=== PATIENT | female | born 1970 | race Caucasian/White ===

== ENCOUNTER 2018-10-21 05:45 | Inpatient (IN) ==
[2018-10-21] MEDS ORDERED: CELECOXIB 200 MG CAPSULE PO ONE ×2 (05:50→06:00)
[2018-10-21] MEDS ORDERED: ACETAMINOPHEN 500 MG TABLET PO ONE ×2 (05:51→06:00)
[2018-10-21] MEDS ORDERED: GABAPENTIN 300 MG CAPSULE PO ONE ×2 (05:51→06:00)
[2018-10-21] MEDS ORDERED: PANTOPRAZOLE 40 MG TABLET PO ONE ×2 (05:52→06:00)
[2018-10-21] MEDS ORDERED: Lactated Ringers 1,000 ML PRIMARY IV ONE (05:52)
[2018-10-21] MEDS ORDERED: LIDOCAINE W/ SODIUM BICARB 0.5 ML SYR ONE (05:52)
[2018-10-21] MEDS ORDERED: Lactated Ringers 1,000 ML PRIMARY IV SCH (06:00)
[2018-10-21] MEDS ORDERED: Nasal Sanitizer POPSWAB ampule 3 AMP (Nozin) PREOP DOSE ENOS SCH (06:00)
[2018-10-21] MEDS ORDERED: LIDOCAINE W/ SODIUM BICARB 0.5 ML SYR SUBD ONE (06:00)
[2018-10-21] MEDS ORDERED: Ketorolac Inj 30 MG, Morphine Inj (Ortho Cocktail) 4 MG, BUPivacaine Inj 0.25% PF 150 MG SPLASH ONE ×3 (06:00)
[2018-10-21] MEDS ORDERED: ceFAZolin Inj 2gm (Premix) 2 GM/50 ML BAG IV ONE ×2 (06:00→07:22)
[2018-10-21 06:15] LABS: BILIRUBIN,URINE NEGATIVE (NEG); CLARITY,URINE CLEAR (CLEAR); COLOR,URINE YELLOW (Y); GLUCOSE, URINE (UA) NEGATIVE (NEG); OCCULT BLOOD,URINE MODERATE (NEG); PH,URINE 5.5 (5.0-8.5); PROTEIN,URINE NEGATIVE (NEG); UROBILINOGEN,URINE 0.2 EU/dL (0.2)
[2018-10-21 06:18] LABS: SQUAMOUS EPITHELIAL CELL,UR FEW; URINE SAMPLE TYPE CLEAN CATCH URINE; WBC,URINE 0
[2018-10-21] MEDS ORDERED: Sodium Chloride 0.9% vial 40 ML ONE (06:49)
[2018-10-21] MEDS ORDERED: BACITRACIN 50,000 UNIT VIAL IRRIG ONE (06:49)
[2018-10-21] MEDS ORDERED: BUPivacaine Liposome/PF (Exparel) Inj 20ml vial INFIL ONE (06:49)
[2018-10-21] MEDS ORDERED: MIDAZOLAM 5 MG/1 ML ONE (06:56)
[2018-10-21] MEDS ORDERED: LIDOCAINE 2%/ EPI 1:200,000 - 20 ML VIAL ONE (06:56)
[2018-10-21] MEDS ORDERED: fentaNYL Inj 250 MCG/5 ML VIAL ONE (06:57)
[2018-10-21] MEDS ORDERED: BUPivacaine Inj 0.5% PF (5mg/ml) 30ml vial ONE (06:58)
[2018-10-21] MEDS ORDERED: PROPOFOL 10 MG/1 ML (200 MG/20 ML) VIAL IV ONE (07:35)
[2018-10-21] MEDS ORDERED: LIDOCAINE MPF 2% - 5 ML (20 MG/1 ML) ONE (07:36)
[2018-10-21] MEDS ORDERED: DEXAMETHASONE PF 10 MG/1 ML VIAL ONE (08:08)
[2018-10-21] MEDS ORDERED: ONDANSETRON 4 MG/2 ML VIAL ONE (08:08)
[2018-10-21] MEDS ORDERED: TRANEXAMIC ACID 1,000 MG / 10 ML VIAL ONE (08:11)
--- NOTE | 2018-10-21 08:40 | CRNA.PROCE ---
Nerve Block Documentation - - Type of Nerve Block Used: Right Adductor Canal Nerve Block Position for Nerve Block: Supine Moniters Used During Block: EKG, SPO2, NIBP Oxygen Supplemented: Yes Sedation Used - Enter Amount in Comment Field [ANES.SEDAT]: Midazolam (mg): Yes (2mg), Fentanyl (mcg): Yes (50mcg) Skin Prep Used: ChloroPrep Draped: No Technique: Ultrasound Nerve Block Needle Used: EchoBright 50 mm Local Anesthetic - Enter Amt in Comment Field [ANES.LOCNB]: 0.5 % Bupivacaine Plain (mL): Yes (20ml), 2 % Xylocaine with Epinephrine 1:200,000 (mL): Yes (20ml) Additives to Nerve Blocks: Dexamethasone (mg): Yes (8mg(2ml)) - - PreOp Block : Time In: 07:17 PreOp Block : Time Out: 07:34 Anesthesia Time - Other Weight: 108.817 kg Height: 5 ft 6 in Body Mass Index (BMI): 38.7
[2018-10-21 11:11] LABS: Hematocrit [HCT] 38.6 % (37.0-47.0); Hemoglobin [HGB] 12.7 g/dL (12.0-16.0)
--- NOTE | 2018-10-21 11:54 | CRNA.PROGR ---
Anesthesia Time - Procedure/Recovery Time Start Date: 10/21/18 End Date: 10/21/18 Anesthesia : Time In: 07:45 Anesthesia : Time Out: 10:53 Anesthesia : Total Time: 188 - Block Time Start Date: 10/21/18 End Date: 10/21/18 PreOp Block : Time In: 07:17 PreOp Block : Time Out: 07:34 PreOp Block : Total Time: 17 - Total Anesthesia Time Total Anesthesia Time (minutes): 205 - Other Weight: 108.817 kg Height: 5 ft 6 in Body Mass Index (BMI): 38.7 Physical Status: P2 Anesthesia Type: General Anesthesia : LMA
[2018-10-21] MEDS ORDERED: HYDROmorphone 2 MG/1 ML IVP PRN (11:55)
[2018-10-21] MEDS ORDERED: LIDOCAINE W/ SODIUM BICARB 0.5 ML SYR SUBD PRN (11:55)
--- NOTE | 2018-10-21 11:55 | CRNA.PROGR ---
Anesthesia Recovery Phase I - Post Anesthesia Evaluation Patient's Condition on Arrival in Phase I: Stable Pain Level: 1
--- NOTE | 2018-10-21 11:59 | DI ---
XR KNEE 1 OR 2 VWS 10/21/2018 10:55 AM HISTORY: [facility] ^right knee OA Comparison: None. Findings: AP and crosstable lateral views of the right knee show postsurgical changes consistent wit h total knee arthroplasty. There is no evidence of hardware fracture or loosening. There is gas in th e soft tissues surrounding the knee, an expected finding in the immediate postoperative timeframe. Th ere is a wound VAC over the anterior knee. Impression: Status post total knee arthroplasty without evidence of complication.
[2018-10-21] MEDS ORDERED: ONDANSETRON 4 MG/2 ML VIAL IVP PRN (12:28)
[2018-10-21] MEDS ORDERED: LIDOCAINE HCL 2 % 10 ML JELLY URO-JECT TOPICAL PRN (12:28)
--- NOTE | 2018-10-21 12:29 | ORTHO.OP ---
Surgery Date: 10/21/18 Preoperative Diagnosis: right knee oa Postoperative Diagnosis: same Procedure: right TKA Surgeon: Rodger Hannah MD Outside Sales Consultant: Nora Palmer PA-C Anesthesia Provider: Rashaun Dailey CRNA Anesthesia Type: General, Regional Estimated Blood Loss (mL): 250 Fluids: 1700 mL LR Pathology: none Findings: See Operative Note Indications: See Operative Note Complications: None
[2018-10-21] MEDS: oxyCODONE/APAP 7.5/325 Tab 1 TAB TAB PO PRN (12:36)
[2018-10-21] MEDS: CYCLOBENZAPRINE 10 MG TABLET PO PRN ×2 (12:36→20:48)
[2018-10-21] MEDS: Lactated Ringers 1,000 ML PRIMARY IV SCH ×2 (12:36→22:42)
[2018-10-21] MEDS: ceFAZolin Inj 2gm (Premix) 2 GM/50 ML BAG IV SCH (17:09)
--- NOTE | 2018-10-21 17:22 | CONSULT ---
Consult Note - Consult Reason for Consult: PostOp Consulation : Ortho Requesting Physician: Dr. Hannah for hypertension Primary Care Provider: Rodger Hannah - History of Present Illness History of Present Illness: This very nice 48-year-old female comes in admitted for elective right total knee replacement by Dr. Hannah hospitalist service was consulted for hypertension patient denies chest pain nausea vomiting patient was given Norvasc 10 mg blood pressure now under control at 120/80 from 140/112 Past Medical History Medical History: Hypertension degenerative joint disease, depression, anxiety Tobacco Use: Current Every Day Smoker In the Past 12 Months, Have Used or Abuse Any of the Following Substance: None Medication / Allergies Home Medications: Home Medications Medication Instructions Recorded Confirmed Type Divalproex Sodium [Depakote] 750 mg PO BID 09/25/18 10/21/18 History Lamotrigine [Lamictal] 200 mg PO DAILY 09/25/18 10/20/18 History Lisinopril [Zestril] 40 mg PO DAILY 09/25/18 10/20/18 History Venlafaxine HCl [Effexor Xr] 225 mg PO DAILY 09/25/18 10/21/18 History Alprazolam [Xanax] 0.5 mg PO PRN PRN 10/16/18 10/20/18 History Oxycodone HCl/Acetaminophen 1 - 2 ea PO Q4-6H PRN #70 tab 10/21/18 Rx [Percocet 7.5-325 Mg Tablet] Allergies/Adverse Reactions: Allergies Allergy/AdvReac Type Severity Reaction Status Date / Time hylan G-F 20 [From Synvisc] Allergy Swelling Verified 10/20/18 09:03 acetaminophen [From Vicodin] AdvReac Hallucinati Verified 10/20/18 09:03 ons codeine AdvReac Other : Verified 10/20/18 09:03 [From Tylenol-Codeine #3] See Comment hydrocodone [From Vicodin] AdvReac Hallucinati Verified 10/20/18 09:03 ons Exam - Vitals Vital Signs: Vital Signs Temperature 98.4 F Temperature Source Axillary Pulse Rate [Pulse Oximeter] 96 Pulse Rate 101 Respiratory Rate 16 Blood Pressure [Right Arm] 120/69 Blood Pressure [Left Arm] 138/82 Blood Pressure 144/95 Pulse Ox 98 Oxygen Flow Rate 1 Oxygen Delivery Method Nasal Cannula Height 5 ft 6 in Weight 239 lb 14.4 oz - General General Appearance: No Acute Distress, Cooperative - Head Head Exam: Normal Inspection, Normocephalic, Atraumatic - Respiratory Respiratory Exam: POSITIVE: Clear to Auscultation - Bilaterally, Breathing Non Labored, Normal To Percussion, Normal to Percussion and Palpation - Cardiovascular Cardiovascular Exam: POSITIVE: RRR, No Murmur, No Clicks, No Gallops, No Rubs, PMI Non-Displaced - GI/Abdominal GI/Abdominal Exam: POSITIVE: Normal Bowel Sounds, Non Tender, Non Distended, Soft, No Masses, No Hepatomegaly, No Splenomegaly, No Organomegaly - Extremities Extremities Exam: POSITIVE: No Clubbing Present, No Edema Present Results - Labs CBC and BMP: 10/21/18 11:05 Assessment and Plan - Patient Problems (1) Hypertension Current Visit: Yes Status: Acute Comment: Patient received 1 dose of Norvasc 10 mg most likely secondary to pain. We will resume her usual lisinopril tonight Code(s): I10 - Essential (primary) hypertension (2) Depression Current Visit: Yes Status: Acute Comment: Continue home meds Code(s): F32.9 - Major depressive disorder, single episode, unspecified (3) Total knee replacement status Current Visit: Yes Status: Acute Comment: Deferred Dr. Hannah PT T OT Code(s): Z96.659 - Presence of unspecified artificial knee joint
[2018-10-21] MEDS: DOCUSATE 100 MG CAPSULE PO SCH (20:49)
[2018-10-21] MEDS ORDERED: VENLAFAXINE HCL PO SCH ×2 (21:00)
[2018-10-21] MEDS ORDERED: lamoTRIgine 100 MG TABLET PO SCH (21:00)
[2018-10-21] MEDS ORDERED: DIVALPROEX SODIUM 750 MG PO SCH (21:00)
[2018-10-21] MEDS ORDERED: VENLAFAXINE HCL XR 150 MG CAP PO SCH (21:00)
[2018-10-21] MEDS ORDERED: LISINOPRIL 20 MG TABLET PO SCH (21:00)
[2018-10-22] MEDS: ceFAZolin Inj 2gm (Premix) 2 GM/50 ML BAG IV SCH (00:56)
[2018-10-22] MEDS: oxyCODONE/APAP 7.5/325 Tab 1 TAB TAB PO PRN ×5 (01:05→13:11)
[2018-10-22 04:44] LABS: Hematocrit [HCT] 32.6 % (37.0-47.0); Hemoglobin [HGB] 10.5 g/dL (12.0-16.0); MEAN CORPUSCULAR HEMOGLOBIN 31.4 PG (27-31); MEAN CORPUSCULAR HGB CONC 32.2 g/dL (33-37); MEAN CORPUSCULAR VOLUME 97.6 FL (81-99); MEAN PLATELET VOLUME 9.4 FL (7.4-12.2); RED BLOOD COUNT 3.34 10^6/uL (4.20-5.40)
[2018-10-22 04:54] LABS: BLOOD UREA NITROGEN 14 mg/dL (7-22)
[2018-10-22 07:31] VITALS: BP 130/77; RESP 16; TEMP 98.7; O2SAT 96
[2018-10-22] MEDS: CYCLOBENZAPRINE 10 MG TABLET PO PRN (07:36)
[2018-10-22] MEDS: Lactated Ringers 1,000 ML PRIMARY IV SCH (08:35)
[2018-10-22] MEDS: DOCUSATE 100 MG CAPSULE PO SCH (08:47)
[2018-10-22] MEDS ORDERED: ENOXAPARIN SODIUM 30 MG/0.3 ML SYRINGE SUBCUT SCH (09:00)
--- NOTE | 2018-10-22 09:56 | PDOC(PROG) ---
Interval History: Patient has no complaints no chest pain nausea or vomiting Objective : Data - Labs CBC and BMP: 10/22/18 04:10 10/22/18 04:10 Objective : Exam - General General Appearance: Cooperative - Respiratory Respiratory Exam: Clear to Auscultation - Bilaterally, Breathing Non Labored, Normal To Percussion, Normal to Percussion and Palpation - Cardiovascular Cardiovascular Exam: RRR, No Murmur, No Clicks, No Gallops, No Rubs, PMI Non- Displaced - GI/Abdominal GI/Abdominal Exam: Normal Bowel Sounds, Non Tender, Non Distended, Soft, No Masses, No Hepatomegaly, No Splenomegaly, No Organomegaly Assessment and Plan - Patient Problems (1) Hypertension Current Visit: Yes Status: Acute Comment: Stable at present time continue home meds Code(s): I10 - Essential (primary) hypertension (2) Depression Current Visit: Yes Status: Acute Comment: Stable continue home meds Code(s): F32.9 - Major depressive disorder, single episode, unspecified (3) Total knee replacement status Current Visit: Yes Status: Acute Comment: Defer to orthopedic surgery PTOT for disposition and anticoagulation and pain management Code(s): Z96.659 - Presence of unspecified artificial knee joint
[2018-10-22 10:19] LABS: HIV ANTIBODY NEGATIVE (N); HIV-1 P24 ANTIGEN NEGATIVE (N)
--- NOTE | 2018-10-22 10:34 | PTI REPORT ---
Thank you for the referral of Fermin Harding. She was seen on 10/21/18 for an inpatient evaluation status post right total knee arthroplasty. SUBJECTIVE: The patient is a 48-year-old female who underwent a right total knee replacement earlier today. The patient is very lethargic and requires multiple cues in order to answer questions for our subjective evaluation. The patient states that she is having 0/10 right knee pain at this time. She does have a CPM in place. The patient reports that she lives in [place], [place] with her and children. She states that they have a few stairs into the house with bilateral hand railings and reports no stairs within the house. The patient does state that she is going to be staying with her parents immediately after surgery in [place], [place] as they have a house that is easier to get into and out of and her is remodeling the bathroom in their home in order to put in a walk-in shower with a shower bench. The patient reports no use of an assistive device prior to surgery and denies any falls in the last three months. The patient states that this is her 10th surgery on the right knee. PAST MEDICAL HISTORY: Past medical history can be found in the patient's medical record. OBJECTIVE FINDINGS: General observations: The patient was very lethargic and required cueing in order to answer questions. She is oriented to the setting and is able to answer questions appropriately. The patient does have an IV in place and has a vac dressing over her total knee incision. She also has a CPM on her right lower extremity. The patient is on 1 liter of oxygen. Her oxygen saturation is 95%, her heart rate is 89 beats per minute, and her blood pressure is 134/79. Bed mobility: The patient was able to transfer from supine to seated edge of bed with min assist x1. Once seated edge of bed, the patient denied any lightheadedness or dizziness. The patient's blood pressure upon sitting is 130/76, oxygen saturation is 96%, and heart rate is 116 beats per minute. The patient sat edge of bed for a couple of minutes. The patient transferred into bed with stand by assist x1 for safety. Transfers: We raised the bed slightly and the patient transferred to a standing position. The patient stated she was a little lightheaded with standing but denied any dizziness. She did require hand hold assist x2 on the walker to maintain balance and contact guard assist x1 for safety. The patient's blood pressure is 122/81, oxygen saturation is 96%, and heart rate is 107 beats per minute. After standing x1 minute, the patient stated she would like to try to ambulate to the bathroom within the room. Ambulation: The patient ambulated with contact guard assist x1 for safety from the bed to the bathroom. She was able to complete toileting activity. She did require contact guard assist for sitting down onto the toilet and to stand back up from the toilet just due to her recent surgery and her fatigue level as the patient stated that she was very tired. The patient was able to ambulate back to the bed and she transferred into bed with stand by assist x1 for safety. ASSESSMENT: The patient has good rehab potential. Problem List: Pain in the right knee Decreased range of motion of the right knee Difficulties transferring and ambulation Short-Term Goals: To be met by discharge from inpatient: Patient will be able to transfer from bed to stand safely and independently. Patient will be able to ambulate 150 feet with standard walker safely and independently. Patient will be able to ascend and descend at least 5 stairs safely with walker. Long-Term Goals: To be met following discharge from inpatient: Patient will attend outpatient therapy in [place], [place] to complete her total knee rehab. TREATMENT PLAN: Patient will be seen B.I.D during the week and one time per day over the weekend as an inpatient to address the above goals and objectives. INITIAL TREATMENT: Treatment today consisted of the initial evaluation followed by one unit of functional activity. Please see objective findings. Following treatment the patient was left in bed with CPM placed on her right lower extremity. Bed alarm was set and call light was placed within reach. Nursing staff was notified on how the patient did with her ambulation. The patient was instructed to take her CPM off when she does get her dinner and to put it back on for at least part of the night. DONNA
[2018-10-22] MEDS ORDERED: ALPRAZolam Tab 0.25 MG TABLET PO PRN (11:00)
[2018-10-22] MEDS ORDERED: LISINOPRIL 20 MG TABLET PO SCH (11:00)
--- NOTE | 2018-10-22 11:23 | PT.PROG ---
Progress Note Progress Note: S. Patient stated that she would like to go home today. She reports her pain a 4/10 O. Patient ambulated 80 feet in the saeed and back to her room where she was left with OT for further therapy. A. Patient tolerated ambulation well, she was able to ambulate with contact guard assist. Patient will perform stair training this afternoon. P. Continue POC.
--- NOTE | 2018-10-22 12:12 | CRNA.PROGR ---
Anesthesia Note - Progress Notes Anesthesia Progress Note: Post OP Anesthesia note Pt is lying in bed resting. She has been up to PT and Ambulating. She is able to get up to the restroom without any problems. She is tolerating a regular diet. She states that her pain is well under control. Current VS are stable. Vital Signs (Last 8 hours) Temp Pulse Resp BP BP Pulse Ox 10/22/18 07:25 98.7 F 87 16 130/77 96 10/22/18 07:00 14 10/22/18 04:54 97.1 F 88 18 109/71 94
--- NOTE | 2018-10-22 15:03 | PT.PROG ---
Progress Note Progress Note: S: pt reports she is ready to go home as long as she can do stairs. O: nsg okay'd prior to PT. pt instructed to ambulate 80 feet with CGA x 1 and walker. pt instructed to perform 4 stairs with CGa x 1 and min cues for technique. pt instructed to ambulate 80 feet with CGA x 1 and walker. pt left in bed with call light within reach and bed alarm activated. A: pt tolerated therapy well. performed stairs well. P: DC PT.
--- NOTE | 2018-10-22 16:06 | ORTHO.PROG ---
Last Taken Vital Signs: Vital Signs - Last Taken Temperature 98.7 F 10/22/18 07:25 Pulse Rate 87 10/22/18 07:25 Respiratory Rate 16 10/22/18 07:25 Blood Pressure 130/77 10/22/18 07:25 Pulse Ox 96 10/22/18 07:25 Subjective: Patient reports her pain is controlled with the pain medication. She ambulated with PT this morning. Denies any calf pain, CP, SOB, F/C. She is going to be at her parents house post-operatively for them to help her. Objective: Laboratory Results 10/22/18 10/22/18 10/22/18 04:10 04:10 09:34 WBC 16.32 H RBC 3.34 L Hgb 10.5 L Hct 32.6 L MCV 97.6 MCH 31.4 H MCHC 32.2 L RDW Std Deviation 47.0 RDW Coeff of Mj 13.6 Plt Count 382 H MPV 9.4 Sodium 137 Potassium 4.3 Chloride 104 Carbon Dioxide 26 Anion Gap 7 BUN 14 Creatinine 0.7 Estimated GFR > 60 BUN/Creatinine Ratio 20.00 Glucose 119 H Calculated Osmolality 285.0 Calcium 8.9 Hep Bs Antigen Pending Hepatitis C Antibody Pending HIV 1&2 Antibody Rapid Negative HIV P24 Antigen Negative On exam, the patient is A&O x 3. Prevena intact and holding suction. Negative calf tenderness. NV intact. AROM right knee and ankle without difficulties. Assessment: POD 1 s/p Right TKA with routine post-operative course. Plan: * DVT ppx: discharge home on ASA 81mg 1 tab daily and portable SCDs * pain meds: discharge home on Percocet * WBAT with walker * start outpatient PT Saturday per protocol * cryocuff ice to knee * Prevena dressing leave on until for post-op appointment * discharge home once cleared by PT * follow-up with ortho as scheduled in 1 week
--- NOTE | 2018-10-23 09:09 | OTI REPORT ---
Thank you for the referral of Fermin Harding. She was seen on 10/22/18 for an occupational therapy inpatient evaluation status post right total knee arthroplasty. SUBJECTIVE: The patient is a 48-year-old female who is from [place], [place]. Prior to admission she was having some difficulty with lower extremity dressing. She does have a high rise toilet but would like a shower chair to sit. Following discharge the patient will be going to her parents house for a while and she doesn't want them to have to help her. PAST MEDICAL HISTORY: Past medical history can be found in the patient's medical record. OBJECTIVE FINDINGS: General observations: The patient was sitting in chair upon the therapist's arrival. Activities of daily living: The patient was able to don and doff her socks independently; however, donning them was much more difficult for the patient. She stated that she wanted her to help just in case. She did not want a sock aide. The patient was issued a bath sponge and a shoe horn for independence at home. The patient was able to stand and complete hygiene activities x4 minutes with stand by assist. Transfers: The patient requires min assist for sit to stand transfers. ASSESSMENT: The patient was issued a buncher hand, a bath sponge, and a shoe horn for increased independence with ADLs as well as a shower chair for independence. Toward the end of the session she was doing very well and more than likely will not need further OT services. Short-Term Goals: To be met by discharge from inpatient: Patient will be able to complete all transfers with modified independence. Patient will be able to dress self with adaptive equipment with modified independence. Long-Term Goals: To be met following discharge from inpatient: Patient will return home demonstrating safety and independence with all functional transfers and ADLs. TREATMENT PLAN: Patient will be seen for initial evaluation and possibly one more time if the patient reports any difficulties with her ADLs. INITIAL TREATMENT: Treatment today consisted of the initial evaluation activities only. DONNA
== END 2018-10-22 14:30 | disposition home or self-care (01) | DRG 470 ==
LOC: OPS 05:45 → MED/SURG 12:17
PROVIDERS: ADMIT Orthopaedic Surgery; ATTEND Orthopaedic Surgery